=== PATIENT | male | born 1965 | race African-American/Black ===

== ENCOUNTER 2023-04-03 17:40 | Emergency (ER) | payer OTHER, SELFPAY ==
--- NOTE | ~2023-04-03 | XR_ITS ---
Left Knee Technique: AP, lateral, and sunrise views were obtained. Clinical History: Pain Findings: No fracture or dislocation is seen. Osseous alignment is anatomic. Joint spaces are preserv ed without degenerative or erosive change. Soft tissues are unremarkable. No joint effusion is seen. Impression: Unremarkable left knee radiographs. Reviewed, dictated and finalized at location . [facility] [employer] Impression: Unremarkable left knee radiographs.
[2023-04-03 18:12] VITALS: BP 111/72; PULSE 79; RESP 20; TEMP 36.9; O2SAT 100
[2023-04-03 22:40] VITALS: BP 116/79; PULSE 70; RESP 16; O2SAT 99
[2023-04-04 02:10] VITALS: BP 104/74; PULSE 69; RESP 15; O2SAT 99
--- NOTE | 2023-04-04 06:10 | ED.GENADULT ---
HPI - General Adult General Chief complaint: Weakness Stated complaint: LEGS WEAK X4D Time Seen by Provider: 04/03/23 23:38 History of Present Illness HPI narrative: 58-year-old male presenting with left knee pain. States that he was recently at another hospital where they gave him pain medicine that made him dizzy and he fell. States that he has had left knee pain since then. States that he needs it checked out before he goes into rehab. He denies any further complaints. Related Data Allergies Allergy/AdvReac Type Severity Reaction Status Date / Time No Known Allergies Allergy Mild Verified 03/23/10 23:32 Review of Systems Review of Systems: All systems reviewed & are unremarkable except as noted in HPI and below Exam Narrative: GENERAL: Resting comfortably, no acute distress HEAD: Normocephalic, atraumatic EYES: PERRLA and EOMI. ENT: poor dentition NECK: Supple. CHEST: No respiratory distress HEART: Regular rate and rhythm EXTREMITIES: Normal range of motion. No edema. diffuse tenderness of left knee with palpation, no erythema or edema, no ecchymoses, distal pulses 2+ SKIN: Warm, dry NEURO: Alert and oriented x3. PSYCH: Normal mood and affect. Course Vital Signs Vital signs: Vital Signs Temperature 98.4 F 04/03/23 18:12 Pulse Rate 79 04/03/23 18:12 Respiratory Rate 20 04/03/23 18:12 Blood Pressure 111/72 04/03/23 18:12 Pulse Oximetry 100 04/03/23 18:12 Oxygen Delivery Room Air 04/03/23 18:12 Temperature 98.4 F 04/03/23 18:12 Pulse Rate 72 04/04/23 07:03 Respiratory Rate 15 04/04/23 07:03 Blood Pressure 115/79 04/04/23 07:03 Pulse Oximetry 100 04/04/23 07:03 Oxygen Delivery Room Air 04/03/23 18:12 Medical Decision Making MDM Narrative Medical decision making narrative: 58-year-old male presenting with left knee pain. Vitals are stable. Exam is Remarkable for the above. X-ray without acute abnormalities. Patient is safe for outpatient management. Advised PCP follow-up. Appropriate return precautions given. Discharged in stable condition. Differential Diagnosis Differential Diagnosis: Knee pain Medical Records Medical records reviewed: Yes I reviewed the external patient's medical records. Vital Signs Vital Signs: Vital Signs Temperature 98.4 F 04/03/23 18:12 Pulse Rate 79 04/03/23 18:12 Respiratory Rate 20 04/03/23 18:12 Blood Pressure 111/72 04/03/23 18:12 Pulse Oximetry 100 04/03/23 18:12 Oxygen Delivery Room Air 04/03/23 18:12 Temperature 98.4 F 04/03/23 18:12 Pulse Rate 72 04/04/23 07:03 Respiratory Rate 15 04/04/23 07:03 Blood Pressure 115/79 04/04/23 07:03 Pulse Oximetry 100 04/04/23 07:03 Oxygen Delivery Room Air 04/03/23 18:12 Imaging Data Radiologist's impression: ITS Impressions Knee X-Ray 04/04/23 06:32 Impression: Unremarkable left knee radiographs. Critical Care Time Critical Care Time Critical Care Time: No Discharge Plan Discharge Clinical Impression: Left knee pain Patient Disposition: Home, Self-Care Condition: Stable Instructions: Antibiotic Form, Knee Pain (ED) Additional Instructions: The x-ray shows no bone abnormalities in your knee. Please use Tylenol and ibuprofen for pain control. We recommend following up with primary care. If your symptoms worsen or other concerning symptoms arise, please return to the ER. Follow-up/Referrals: Idris Rios MD [Physician] -
[2023-04-04 07:03] VITALS: BP 115/79; PULSE 72; RESP 15; O2SAT 100
[2023-04-04] MEDS: ACETAMINOPHEN 500 MG TABLET 1000 MG PO (07:24)
[2023-04-04] MEDS: IBUPROFEN 400 MG TABLET PO (07:24)
== END 2023-04-04 07:30 | disposition home or self-care (01) ==
PROVIDERS: Emergency Provider Emergency Medicine
DX: M25.562 Pain in left knee (principal)
CPT/HCPCS: 73562; 99283; A9270